=== PATIENT | female | born 2000 | race Two or more races ===

== ENCOUNTER 2023-05-28 19:55 | Emergency (ER) | payer OTHER ==
[~2023-05-28] VITALS: Ht 167.6 cm; Wt 77.1 kg
[2023-05-28 20:44] LABS: HEMATOCRIT 39.5 % (36.0-45.00); HEMOGLOBIN 13.7 g/dL (12.0-15.00); MEAN CELL VOLUME 84.1 fL (80.00-100.00); MEAN CORPUSCULAR HEMOGLOBIN 29.1 pg (27.00-32.0); MEAN CORPUSCULAR HGB CONC 34.6 g/dl (32.0-36.0); PLATELET COUNT 346 K/uL (150-450)
[2023-05-28 21:21] LABS: PH,URINE 5.5 (5.0-8.0); URINE APPEARANCE Clear; URINE BILIRRUBIN Moderate (NEGATIVE); URINE BLOOD Negative; URINE COLOR Dark Yellow; URINE GLUCOSE Negative (NEGATIVE); URINE LEUKOCYTE Negative; URINE NITRATE Negative; URINE PROTEIN Trace (NEGATIVE)
[2023-05-28 21:24] LABS: URINE BACTERIA 143.6 uL (0.0-1933); URINE EPITHELIAL CELLS 12.9 uL (0.0-38.8); URINE RBC 34.3 uL (0.0-20.8); URINE WBC 6.4 uL (0.0-23.2)
== END 2023-05-28 22:34 | disposition home or self-care (01) ==
LOC: ER 19:55
PROVIDERS: Emergency Medicine
DX: R10.2 Pelvic and perineal pain (principal); Z33.1 Pregnant state, incidental

== ENCOUNTER 2023-06-01 00:11 | Emergency (ER) | payer OTHER ==
[~2023-06-01] VITALS: Ht 167.6 cm; Wt 77.1 kg
[2023-06-01 01:52] LABS: HEMATOCRIT 41.1 % (36.0-45.00); MEAN CELL VOLUME 85.5 fL (80.00-100.00); MEAN CORPUSCULAR HEMOGLOBIN 29.2 pg (27.00-32.0); MEAN CORPUSCULAR HGB CONC 34.1 g/dl (32.0-36.0); PLATELET COUNT 357 K/uL (150-450); RED CELL DISTRIBUTION WIDTH 12.9 % (11.5-14.5)
[2023-06-01 02:10] LABS: PH,URINE 5.5 (5.0-8.0); URINE APPEARANCE Clear; URINE BILIRRUBIN Moderate (NEGATIVE); URINE BLOOD Negative; URINE COLOR Dark Yellow; URINE GLUCOSE Negative (NEGATIVE); URINE LEUKOCYTE Trace; URINE NITRATE Negative; URINE PROTEIN Trace (NEGATIVE)
[2023-06-01 02:14] LABS: URINE EPITHELIAL CELLS 28.1 uL (0.0-38.8); URINE RBC 20.1 uL (0.0-20.8); URINE WBC 15.3 uL (0.0-23.2)
[2023-06-01 02:22] LABS: CALCIUM 9.1 mg/dL (8.5-10.1); CREATININE SERUM 0.73 mg/dL (0.55-1.02); GFR 97.94; POTASSIUM 3.96 mEq/L (3.5-5.1); TSH 2.53 uIU/mL (0.358-3.74)
[2023-06-01] MEDS ORDERED: VITATRUE COMBO1 EACH PO (04:05)
[2023-06-01] MEDS ORDERED: ACETAMINOPHEN500 M2 PO (04:05)
== END 2023-06-01 04:27 | disposition home or self-care (01) ==
LOC: ER 00:11
PROVIDERS: General Practice
DX: O26.891 Other specified pregnancy related conditions, first trimester (principal); Z3A.01 Less than 8 weeks gestation of pregnancy; R10.2 Pelvic and perineal pain

== ENCOUNTER 2024-01-09 11:11 | Inpatient (IN) | payer OTHER ==
[~2024-01-09] VITALS: Ht 167.6 cm; Wt 89.8 kg
[~2024-01-09 11:11] MED LIST: ACETAMINOPHEN500 M2 PO; VITATRUE COMBO1 EACH PO
[2024-01-30 06:22] LABS: URINE APPEARANCE Clear; URINE BILIRRUBIN Negative (NEGATIVE); URINE BLOOD Trace; URINE COLOR Yellow; URINE GLUCOSE Negative (NEGATIVE); URINE KETONE Trace (NEGATIVE); URINE LEUKOCYTE Negative; URINE NITRATE Negative; URINE PROTEIN Trace (NEGATIVE)
[2024-01-30 06:25] LABS: URINE BACTERIA 345.1 uL (0.0-1933); URINE EPITHELIAL CELLS 12.5 uL (0.0-38.8); URINE RBC 5.9 uL (0.0-20.8); URINE WBC 40.6 uL (0.0-23.2)
[2024-01-30 06:29] LABS: URINE CAST 0.15 uL (0.0-1.40)
[2024-01-30] MEDS ORDERED: OXYTOCIN 500 ML IV SCH (06:45)
[2024-01-30] MEDS ORDERED: RINGERS SOLUTION,LACTATED 1,000 ML IV SCH (06:45)
[2024-01-30 06:53] LABS: HEMATOCRIT 32.3 % (36.0-45.00); HEMOGLOBIN 10.8 g/dL (12.0-15.00); MEAN CELL VOLUME 80.1 fL (80.00-100.00); MEAN CORPUSCULAR HEMOGLOBIN 26.8 pg (27.00-32.0); MEAN CORPUSCULAR HGB CONC 33.5 g/dl (32.0-36.0); PLATELET COUNT 280 K/uL (150-450); RED BLOOD COUNT 4.03 M/uL (4.00-6.00); RED CELL DISTRIBUTION WIDTH 15.2 % (11.5-14.5)
[2024-01-30 07:09] LABS: INR < 0.93; PARTIAL THROMBOPLASTIN TIME 25.9 SECONDS (22.0-34.0)
[2024-01-30 07:20] LABS: ALBUMIN 2.9 gm/dL (3.4-5.0); BILIRUBIN TOTAL 0.33 mg/dL (0.3-1.2); CALCIUM 8.8 mg/dL (8.5-10.1); CREATININE SERUM 0.82 mg/dL (0.55-1.02); GFR 84.94; GLOBULINA 3.7 G/DL (2.4-3.5); POTASSIUM 4.06 mEq/L (3.5-5.1); TOTAL PROTEIN 6.6 gm/dL (6.4-8.2)
[2024-01-30 07:31] LABS: PROTHROMBIN TIME 9.5 SECONDS (9.0-11.5)
[2024-01-30] MEDS ORDERED: PROMETHAZINE HCL 25 MG/ML AMPUL IV STA (08:23)
[2024-01-30] MEDS ORDERED: MEPERIDINE HCL/PF 50 MG/ML VIAL IV STA (08:23)
[2024-01-30] MEDS ORDERED: LIDOCAINE HCL 1% 2ML VIAL IJ ONE (14:30)
[2024-01-30] MEDS ORDERED: ACETAMINOPHEN 325 MG TABLET PO PRN (14:30)
[2024-01-30] MEDS ORDERED: CHLORHEXIDINE GLUCONATE 120 ML BOTTLE TOP ONE (14:30)
[2024-01-30] MEDS ORDERED: OxyCODONE HCL/APAP UD (PERCOCET) PO PRN (14:30)
[2024-01-30] MEDS ORDERED: OXYTOCIN 20 UNITS/1000ML RL PIGGYBAG IV ONE (14:30)
[2024-01-30] MEDS ORDERED: ERYTHROMYCIN BASE 1 GM TUBE OP ONE (14:30)
[2024-01-30] MEDS ORDERED: BENZOCAINE/MENTHOL 90 ML BOTTLE TOP SCH (17:00)
[2024-01-30] MEDS ORDERED: HYDROCORTISONE 2.5% 30 GM TUBE RECTAL SCH (17:00)
[2024-01-31 03:38] LABS: HEMATOCRIT 32.8 % (36.0-45.00); HEMOGLOBIN 10.6 g/dL (12.0-15.00); MEAN CELL VOLUME 80.7 fL (80.00-100.00); MEAN CORPUSCULAR HEMOGLOBIN 26.2 pg (27.00-32.0); MEAN CORPUSCULAR HGB CONC 32.4 g/dl (32.0-36.0); PLATELET COUNT 258 K/uL (150-450); RED BLOOD COUNT 4.06 M/uL (4.00-6.00); RED CELL DISTRIBUTION WIDTH 15.4 % (11.5-14.5)
== END 2024-02-01 14:20 | disposition home or self-care (01) | DRG 807 ==
LOC: LDR 01-30 04:41 → OB/GYN 01-30 13:30
PROVIDERS: ADMIT Specialist; ATTEND Specialist
PROC: 10E0XZZ Delivery of Products of Conception, External Approach (ICD-10-PCS; principal; 2024-01-30)
PROC: 0UQG7ZZ Repair Vagina, Via Natural or Artificial Opening (ICD-10-PCS; 2024-01-30)
PROC: 4A1HXCZ Monitoring of Products of Conception, Cardiac Rate, External Approach (ICD-10-PCS; 2024-01-30)
PROC: 3E033VJ Introduction of Other Hormone into Peripheral Vein, Percutaneous Approach (ICD-10-PCS; 2024-01-30)
DX: O71.4 Obstetric high vaginal laceration alone (principal); Z37.0 Single live birth; O48.0 Post-term pregnancy; Z3A.40 40 weeks gestation of pregnancy; Z20.822 Contact with and (suspected) exposure to COVID-19

== ENCOUNTER 2024-08-03 11:16 | Emergency (ER) | payer OTHER ==
[~2024-08-03] VITALS: Ht 167.6 cm; Wt 83.9 kg
[2024-08-03 13:58] LABS: HEMATOCRIT 41.4 % (36.0-45.00); HEMOGLOBIN 13.7 g/dL (12.0-15.00); MEAN CELL VOLUME 82.5 fL (80.00-100.00); MEAN CORPUSCULAR HEMOGLOBIN 27.2 pg (27.00-32.0); PLATELET COUNT 335 K/uL (150-450); RED BLOOD COUNT 5.02 M/uL (4.00-6.00); RED CELL DISTRIBUTION WIDTH 14.1 % (11.5-14.5)
[2024-08-03] MEDS ORDERED: ACETAMINOPHEN500 M1 PO (16:57)
[2024-08-03] MEDS ORDERED: GILTUSS COUGH-118 M1 PO (16:57)
[2024-08-03] MEDS ORDERED: ZITHROMAX TRI-500 MG PO (16:57)
== END 2024-08-03 17:26 | disposition home or self-care (01) ==
LOC: ER 11:19
PROVIDERS: Preventive Medicine Public Health & General Preventive Medicine
DX: J06.9 Acute upper respiratory infection, unspecified (principal); Z20.822 Contact with and (suspected) exposure to COVID-19